=== PATIENT | female | born 1945 | race Caucasian/White ===

== ENCOUNTER 2022-10-17 13:45 | Outpatient (RCR) | payer MEDICARE, SELFPAY | END 2022-12-20 15:02 | disposition home or self-care (01) | LOC: HO.WCC 13:45 | PROVIDERS: Visit Provider Surgery | DX: L97.812 Non-pressure chronic ulcer of other part of right lower leg with fat layer exposed (principal); C44.722 Squamous cell carcinoma of skin of right lower limb, including hip; Q82.0 Hereditary lymphedema | CPT/HCPCS: 11042; 97597; 99212 ==